=== PATIENT | female | born 1960 | race Caucasian/White ===

== ENCOUNTER → 2017-04-09 | Outpatient (CLI) | payer OTHER ==
--- NOTE | 2017-04-10 09:12 | RADIOLOGY REPORT PS360 ---
MRI-L-SPINE W/O, MRI-3D RENDERING/MYELOGRAM HISTORY: Low back pain with right leg numbness and creatinine LOW BACK PAIN, UNSPECIFIED INJURY OF LOW BACK ORDERING PHYSICIAN: Anai KAUFMAN PATIENT AGE: 56 years COMPARISON: Radiograph of 03/28/2017 TECHNIQUE: Standard multiplanar multiecho sequences are performed without contrast. 3-D MIP and myelographic images are also rendered and reviewed FINDINGS: There is mild levoscoliosis of 16 degrees with multilevel lumbar spondylosis as detailed at each level below. The spinal cord ends at the T12-L1 level. T11-T12: Degenerative disc disease with mild endplate irregularity. T12-L1: Unremarkable. L1-L2: Degenerative disc disease with bulging disc with mild facet arthropathy. L2-L3: Moderate to severe degenerative disc disease with bulging disc along with facet and ligamentum flavum hypertrophy with mild right lateral recess narrowing and mild right foraminal narrowing. L3-L4: Degenerative disc disease with mild bulging disc along with mild facet and ligamentum flavum hypertrophy. There is transverse narrowing of the canal at that level at 11 mm. There is mild right foraminal narrowing. L4-L5: Minimal concentric bulging disc. The disc space is well preserved. There is mild facet and ligamentum flavum hypertrophy with mild bilateral foraminal narrowing. L5-S1: There is moderate left-sided facet hypertrophic change with moderate to severe left-sided foraminal narrowing. No disc herniation. No fracture or dislocation.. IMPRESSION: 1. Multilevel lumbar spondylosis with degenerative disc disease, bulging disc, and facet arthropathy with foraminal and lateral recess narrowing as detailed above. Please see above for detailed description at each level 2. Borderline transverse canal stenosis at L3-L4. 5. No disc herniation apparent
== END ==
LOC: RAD 15:34
DX: M54.5 Low back pain (principal); S39.92XD Unspecified injury of lower back, subsequent encounter